=== PATIENT | female | born 1975 | race Caucasian/White ===

== ENCOUNTER 2018-08-06 12:21 | Outpatient (CLI) | payer OTHER | END 2018-08-06 12:22 | disposition home or self-care (01) | LOC: BICMAMMO 12:21 | PROVIDERS: ATTEND Obstetrics & Gynecology | DX: Z12.31 Encounter for screening mammogram for malignant neoplasm of breast (principal); Z80.3 Family history of malignant neoplasm of breast | CPT/HCPCS: 77063; 77067 ==

== ENCOUNTER 2019-08-08 15:30 | Outpatient (CLI) | payer OTHER ==
--- NOTE | 2019-08-08 16:49 | MMO ---
Bilateral MAMMO Bilat Screen [facility]. CLINICAL HISTORY: Patient is 44 years old and is seen for screening. The patient has the following family history of breast cancer: grandmother. The patient has no personal history of cancer. VIEWS: The views performed were: bilateral craniocaudal with tomosynthesis; bilateral mediolateral oblique with tomosynthesis; and bilateral exaggerated craniocaudal. FILMS COMPARED: The present examination has been compared to prior imaging studies performed at [facility] on 06/07/2015, 06/24/2017 and 08/06/2018. This study has been interpreted with the assistance of computer-aided detection. MAMMOGRAM FINDINGS: The breasts are heterogeneously dense, which could obscure a lesion on mammography. There are no suspicious masses, suspicious calcifications, or new areas of architectural distortion. IMPRESSION: THERE IS NO MAMMOGRAPHIC EVIDENCE OF MALIGNANCY. A ROUTINE FOLLOW-UP MAMMOGRAM IN 1 YEAR IS RECOMMENDED. THE RESULTS OF THIS EXAM WERE SENT TO THE PATIENT. ACR BI-RADS Category 1 - Negative MAMMOGRAPHY NOTE: 1. A negative mammogram report should not delay a biopsy if a dominant of clinically suspicious mass is present. 2. Approximately 10% to 15% of breast cancers are not detected by mammography. 3. Adenosis and dense breasts may obscure an underlying neoplasm. Reported by: BRADLEY HESS MD Electonically Signed: [id number]
== END 2019-08-08 15:31 | disposition home or self-care (01) ==
LOC: BICMAMMO 15:30
PROVIDERS: ATTEND Obstetrics & Gynecology
DX: Z12.31 Encounter for screening mammogram for malignant neoplasm of breast (principal); Z80.3 Family history of malignant neoplasm of breast
CPT/HCPCS: 77063; 77067

== ENCOUNTER 2019-08-30 10:28 | Day surgery (SDC) | payer OTHER ==
[2019-08-30] MEDS ORDERED: Cyclopentolate 1% Opth Drop 2 ML BOT ONE (11:00)
[2019-08-30] MEDS ORDERED: Phenylephrine 2.5% Ophth Soln 5 ML BOT ONE (11:00)
[2019-08-30] MEDS ORDERED: EPINEPHrine 0.3 MG in Ophthalmic Irrigation Solution 500 ML IRR SCH (11:24)
[2019-08-30] MEDS ORDERED: Maxitrol 0.1% Opth Oint 3.5 GM TUBE ONE (11:40)
[2019-08-30] MEDS ORDERED: Lidocaine 4% PF 5 ML AMP ONE (11:40)
[2019-08-30] MEDS ORDERED: CEFAZOLIN 1 GM VIAL ONE (11:40)
[2019-08-30] MEDS ORDERED: Lidocaine 1% PF 5 ML VIAL ONE (11:40)
[2019-08-30] MEDS ORDERED: Triamcinolone 40 MG/ML VIAL ONE (11:40)
[2019-08-30] MEDS ORDERED: Bupivacaine PF 0.75% SDV 10 ML ONE (11:40)
[2019-08-30] MEDS ORDERED: PROPOFOL 200 MG/20 ML VIAL ONE (11:40)
[2019-08-30] MEDS ORDERED: Fentanyl 100 MCG/2 ML VIAL ONE (12:50)
[2019-08-30] MEDS ORDERED: Midazolam HCl 2 mg/2 ml Vial ONE (12:50)
--- NOTE | 2019-08-30 16:17 | OP ---
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 PROCEDURE PERFORMED: 1. 25-gauge pars plana vitrectomy, right eye. 2. Retinal detachment repair, right eye. 3. Endolaser, right eye. 4. Air fill, right eye. ESTIMATED BLOOD LOSS: None. SPECIMENS REMOVED: None. COMPLICATIONS: None. ANESTHESIA: MAC with retrobulbar block. DESCRIPTION OF PROCEDURE: The patient was identified in the preoperative holding area where the correct eye being the right eye was marked for surgery. The patient was taken to the operating room, where MAC anesthesia was induced. A retrobulbar block was administered to the right eye. The block consisted of 1:1 ratio of 4% lidocaine and 0.75% Marcaine. A total of 5 mL was administered. The right eye was then prepped and draped in the usual sterile ophthalmic fashion for surgery. A wire lid speculum was placed. A standard 25-gauge pars plana vitrectomy platform was fashioned with trocars placed approximately 4 mm from the limbus. The infusion was noted to be within the vitreous cavity prior to being turned on to infusion pressure of 30 mmHg. The light pipe Micro vitrector was introduced in the eye under visualization of the BIOM viewing system. A macula-on rhegmatogenous retinal detachment was noted from approximately 9 o'clock to 12 o'clock. A small retinal hole was noted at 12 o'clock. A careful core and peripheral shave vitrectomy were performed with the assistance of Kenalog and scleral depression. Great care was taken to relieve all traction off the aforementioned defect. Using the Endo Cautery, the defect was marked followed by creation of a superotemporal drainage retinotomy. The retinotomy was opened with a flute needle. Air-fluid exchange was performed, which allowed for complete flattening of the retina. The Endolaser was used to provide barricade around the retinotomy site as well as the hole superiorly and 360-degree cerclage with sparing of the 3 and 9 o'clock meridians. Following laser, the flute needle was reintroduced in the eye to remove the residual subretinal fluid. The cannulas were sequentially removed and all sclerotomies were sutured with 8-0 Vicryl suture. Following suturing, all sclerotomies were noted to be airtight. Subconjunctival Ancef and Kenalog were injected. The wire lid speculum was removed followed by application of TobraDex ophthalmic ointment and a light patch and shield. The patient tolerated the procedure well, was taken to outpatient recovery area in good condition. Job ID: [id number]
== END 2019-08-30 15:05 | disposition home or self-care (01) ==
LOC: SDC 10:28
PROVIDERS: ATTEND Ophthalmology Retina Specialist
PROC: 08T43ZZ Resection of Right Vitreous, Percutaneous Approach (ICD-10-PCS; principal; 2019-08-30)
DX: H33.001 Unspecified retinal detachment with retinal break, right eye (principal)
CPT/HCPCS: J0171; J0690; J2001; J2250; J2704; J3010; J3301; J3490

== ENCOUNTER 2020-10-30 11:51 | Outpatient (CLI) | payer OTHER | END 2020-10-30 11:52 | disposition home or self-care (01) | LOC: BICMAMMO 11:51 | PROVIDERS: ATTEND Obstetrics & Gynecology | DX: Z12.31 Encounter for screening mammogram for malignant neoplasm of breast (principal); Z80.3 Family history of malignant neoplasm of breast | CPT/HCPCS: 77063; 77067 ==